=== PATIENT | male | born 1945 | race Asian ===

== ENCOUNTER 2023-08-22 18:18 | Emergency (ER) | payer OTHER ==
[~2023-08-22] VITALS: Ht 165.1 cm; Wt 72.6 kg
[2023-08-22] MEDS ORDERED: 0.9 % SODIUM CHLORIDE 1,000 ML IV SCH (18:50)
[2023-08-22 19:52] LABS: HEMATOCRIT 51.6 % (39.0-48.0); HEMOGLOBIN 17.5 g/dL (13-16.00); MEAN CELL VOLUME 85.9 fL (80.0-100.00); MEAN CORPUSCULAR HEMOGLOBIN 29.1 pg (27.00-32.0); MEAN CORPUSCULAR HGB CONC 33.9 g/dl (32.0-36.0); PLATELET COUNT 172 K/uL (150-450); RED BLOOD COUNT 6.01 M/uL (4.00-6.00); RED CELL DISTRIBUTION WIDTH 14.9 % (11.5-14.5)
[2023-08-22 20:27] LABS: CALCIUM 8.9 mg/dL (8.5-10.1); CREATININE SERUM 1.94 mg/dL (0.70-1.30); GFR 33.91; POTASSIUM 4.54 mEq/L (3.5-5.1)
[2023-08-22 21:00] LABS: ABG PH 7.426 (7.35-7.45); ABG PO2 73.9 mmHg (80-100); ABG pCO2 31.1 mmHg (35-45); BASE EXCESS -3.2 mmol/l; SaO2 94.9 %; Tco2 20.9 mmol/l
[2023-08-22 21:01] LABS: allen test SATISFACTORY; o2 28 %; puncture site RADIAL LEFT
[2023-08-22] MEDS ORDERED: ACETAMINOPHEN 500 MG GEL..CAP PO STA (23:37)
[2023-08-23] MEDS ORDERED: NIFEDIPINE 10 MG CAPSULE PO STA (00:33)
[2023-08-23] MEDS ORDERED: LEVALBUTEROL HCL 0.63 MG/3 ML SOLUTION IH SCH ×2 (00:45→05:00)
[2023-08-23 02:13] LABS: PH,URINE 5.5 (5.0-8.0); URINE APPEARANCE Clear; URINE BILIRRUBIN Negative (NEGATIVE); URINE BLOOD Moderate; URINE COLOR Yellow; URINE GLUCOSE Negative (NEGATIVE); URINE LEUKOCYTE Negative; URINE NITRATE Negative
[2023-08-23 02:17] LABS: URINE BACTERIA 37.7 uL (0.0-1933); URINE EPITHELIAL CELLS 6.3 uL (0.0-38.8); URINE WBC 12.6 uL (0.0-23.2)
[2023-08-23 02:19] LABS: URINE PROTEIN 300 (NEGATIVE)
[2023-08-23 02:56] LABS: COCAINE NEGATIVE (NEGATIVE); METHADONE NEGATIVE (NEGATIVE); OPIATES NEGATIVE (NEGATIVE); THC ( Cannabinoids) NEGATIVE (NEGATIVE)
[2023-08-23 06:42] LABS: ABG PH 7.438 (7.35-7.45); ABG PO2 78.5 mmHg (80-100); ABG pCO2 31.3 mmHg (35-45); BASE EXCESS -2.4 mmol/l; BICARBONATE 20.7 mmol/l (23-25); SaO2 95.9 %; Tco2 21.6 mmol/l; allen test SATISFACTORY; o2 21 %; puncture site RADIAL LEFT
[2023-08-23] MEDS ORDERED: ENALAPRILAT DIHYDRATE 2.5 MG/2 ML VIAL IV ONE (08:15)
[2023-08-23] MEDS ORDERED: HYZAAR 100-251 EACH PO (10:10)
[2023-08-24] MEDS ORDERED: ENOXAPARIN SODIUM 40 MG/0.4 ML SYRINGE SUBCUTANEO SCH (18:02)
[2023-08-24] MEDS ORDERED: MORPHINE SULFATE 4 MG/ML VIAL IV SCH (18:03)
[2023-08-24] MEDS ORDERED: FAMOtidine 10 MG/ML (4ML VIAL) IV SCH (18:03)
[2023-08-24] MEDS ORDERED: LOSARTAN POTASSIUM 25 MG TABLET PO SCH (18:07)
[2023-08-24] MEDS ORDERED: 0.9 % SODIUM CHLORIDE 1,000 ML IV SCH (18:15)
[2023-08-24] MEDS ORDERED: ENALAPRILAT DIHYDRATE 1.25 MG/ML VIAL IV PRN (18:15)
[2023-08-24] MEDS ORDERED: ENOXAPARIN SODIUM 40 MG/0.4 ML SYRINGE SUBCUTANEO ONE (18:15)
[2023-08-24] MEDS ORDERED: MORPHINE SULFATE 2 MG/ML CARTRIDGE IV ONE (18:15)
[2023-08-24 19:06] LABS: HEMATOCRIT 49.6 % (39.0-48.0); HEMOGLOBIN 16.8 g/dL (13-16.00); MEAN CELL VOLUME 85.7 fL (80.0-100.00); MEAN CORPUSCULAR HGB CONC 33.9 g/dl (32.0-36.0); RED BLOOD COUNT 5.79 M/uL (4.00-6.00); RED CELL DISTRIBUTION WIDTH 14.7 % (11.5-14.5)
[2023-08-24 19:12] LABS: PH,URINE 5.5 (5.0-8.0); URINE BILIRRUBIN Negative (NEGATIVE); URINE BLOOD Large; URINE COLOR Dark Yellow; URINE GLUCOSE Negative (NEGATIVE); URINE LEUKOCYTE Negative; URINE NITRATE Negative
[2023-08-24 19:14] LABS: URINE BACTERIA 45.3 uL (0.0-1933); URINE EPITHELIAL CELLS 16.6 uL (0.0-38.8); URINE RBC 921.4 uL (0.0-20.8); URINE WBC 31.6 uL (0.0-23.2)
[2023-08-24 19:23] LABS: INR 1.02; PROTHROMBIN TIME 10.7 SECONDS (9.0-11.5)
[2023-08-24 19:28] LABS: BILIRUBIN TOTAL 0.57 mg/dL (0.3-1.2); CALCIUM 8.2 mg/dL (8.5-10.1); CREATININE SERUM 1.23 mg/dL (0.70-1.30); GFR 57.36; GLOBULINA 4.9 G/DL (2.4-3.5); POTASSIUM 4.48 mEq/L (3.5-5.1); TOTAL PROTEIN 7.9 gm/dL (6.4-8.2); URINE APPEARANCE SL CLOUDY; URINE PROTEIN 300 (NEGATIVE)
[2023-08-24 19:31] LABS: URINE MUCUS SCANT
[2023-08-24 19:57] LABS: PLATELET COUNT 101 K/uL (150-450)
[2023-08-25 15:49] LABS: HEMATOCRIT 47.1 % (39.0-48.0); HEMOGLOBIN 15.8 g/dL (13-16.00); MEAN CELL VOLUME 85.7 fL (80.0-100.00); MEAN CORPUSCULAR HEMOGLOBIN 28.7 pg (27.00-32.0); MEAN CORPUSCULAR HGB CONC 33.5 g/dl (32.0-36.0); RED BLOOD COUNT 5.49 M/uL (4.00-6.00); RED CELL DISTRIBUTION WIDTH 14.7 % (11.5-14.5)
[2023-08-25 15:51] LABS: ALBUMIN 2.7 gm/dL (3.4-5.0); BILIRUBIN TOTAL 0.81 mg/dL (0.3-1.2); CALCIUM 7.8 mg/dL (8.5-10.1); CREATININE SERUM 1.28 mg/dL (0.70-1.30); GFR 54.79; GLOBULINA 4.3 G/DL (2.4-3.5); POTASSIUM 4.1 mEq/L (3.5-5.1)
[2023-08-25 16:23] LABS: PLATELET COUNT 104 K/uL (150-450)
[2023-08-26] MEDS ORDERED: DIPHENHYDRAMINE HCL 50 MG/ML VIAL 1ML IV STA (01:25)
[2023-08-26] MEDS ORDERED: 0.9 % SODIUM CHLORIDE 1,000 ML IV SCH (06:30)
[2023-08-26] MEDS ORDERED: MEPERIDINE HCL/PF 25 MG/ML VIAL IV SCH (16:13)
[2023-08-27] MEDS ORDERED: ACETAMINOPHEN 500 MG GEL..CAP PO ONE (00:45)
== END 2023-08-27 11:45 | disposition still patient (30) ==
LOC: ER 18:18
PROVIDERS: Emergency Medicine; General Practice
DX: K52.9 Noninfective gastroenteritis and colitis, unspecified (principal); I10 Essential (primary) hypertension; Z20.822 Contact with and (suspected) exposure to COVID-19

== ENCOUNTER 2023-08-26 08:00 | Inpatient (IN) | payer OTHER ==
[~2023-08-26] VITALS: Ht 165.1 cm; Wt 68.0 kg
[~2023-08-26 08:00] MED LIST: HYZAAR 100-251 EACH PO
[2023-08-27] MEDS ORDERED: MORPHINE SULFATE 2 MG/ML CARTRIDGE IV PRN (16:15)
[2023-08-27] MEDS ORDERED: 0.9 % SODIUM CHLORIDE 1,000 ML IV SCH (16:15)
[2023-08-27] MEDS ORDERED: ONDANSETRON HCL 4 MG in 0.9 % SODIUM CHLORIDE 50 ML IV PRN (16:15)
[2023-08-27] MEDS ORDERED: ENALAPRILAT DIHYDRATE 1.25 MG/ML VIAL IV PRN (16:15)
[2023-08-27] MEDS ORDERED: FAMOTIDINE/PF 20 MG in 0.9 % SODIUM CHLORIDE 100 ML IV SCH (17:00)
[2023-08-27 17:07] LABS: HEMATOCRIT 42.2 % (39.0-48.0); HEMOGLOBIN 14.3 g/dL (13-16.00); MEAN CELL VOLUME 84.7 fL (80.0-100.00); MEAN CORPUSCULAR HEMOGLOBIN 28.7 pg (27.00-32.0); MEAN CORPUSCULAR HGB CONC 33.9 g/dl (32.0-36.0); PLATELET COUNT 163 K/uL (150-450); RED BLOOD COUNT 4.98 M/uL (4.00-6.00); RED CELL DISTRIBUTION WIDTH 14.7 % (11.5-14.5)
[2023-08-27 17:25] LABS: INR 0.98; PROTHROMBIN TIME 10.3 SECONDS (9.0-11.5)
[2023-08-27] MEDS ORDERED: ENALAPRILAT DIHYDRATE 1.25 MG/ML VIAL IV SCH (18:00)
[2023-08-28] MEDS ORDERED: LOSARTAN POTASSIUM 100 MG TABLET PO SCH (06:00)
[2023-08-28] MEDS ORDERED: AMLODIPINE BESYLATE 5 MG TABLET PO SCH (06:00)
[2023-08-28] MEDS ORDERED: CARVEDILOL 25 MG TABLET PO SCH (17:01)
[2023-08-28] MEDS ORDERED: NIFEDIPINE 60 MG TAB.SA.OSM PO SCH (17:02)
[2023-08-29] MEDS ORDERED: NIFEDIPINE 60 MG TAB.SA.OSM PO SCH (09:00)
[2023-08-29] MEDS ORDERED: HYDROCHLOROTHIAZIDE 12.5 MG CAPSULE PO SCH (17:00)
[2023-08-30 05:46] LABS: PH,URINE 6.5 (5.0-8.0); URINE APPEARANCE Clear; URINE BILIRRUBIN Negative (NEGATIVE); URINE BLOOD Large; URINE COLOR Yellow; URINE GLUCOSE Negative (NEGATIVE); URINE LEUKOCYTE Small; URINE NITRATE Negative
[2023-08-30 05:48] LABS: URINE BACTERIA 3293.3 uL (0.0-1933); URINE EPITHELIAL CELLS 14.3 uL (0.0-38.8); URINE RBC 1752.2 uL (0.0-20.8); URINE WBC 107.4 uL (0.0-23.2)
[2023-08-30 05:56] LABS: URINE PROTEIN 100 (NEGATIVE)
[2023-08-30 06:32] LABS: ALBUMIN 2.9 gm/dL (3.4-5.0); BILIRUBIN TOTAL 0.58 mg/dL (0.3-1.2); CALCIUM 8.2 mg/dL (8.5-10.1); CREATININE SERUM 1.19 mg/dL (0.70-1.30); GFR 59.59; GLOBULINA 4.6 G/DL (2.4-3.5); POTASSIUM 4.61 mEq/L (3.5-5.1); TOTAL PROTEIN 7.5 gm/dL (6.4-8.2)
[2023-08-30] MEDS ORDERED: 0.9 % SODIUM CHLORIDE 1,000 ML IV SCH (09:00)
[2023-08-30] MEDS ORDERED: IRBESARTAN 300 MG TABLET PO SCH (09:00)
[2023-08-30] MEDS ORDERED: PROMETHAZINE HCL 50 MG/ML AMPUL IM PRN (09:00)
[2023-08-30] MEDS ORDERED: NIFEDIPINE 90 MG TAB.SA.OSM PO SCH (09:00)
[2023-08-30] MEDS ORDERED: MEPERIDINE HCL/PF 50 MG/ML VIAL IM PRN (09:00)
[2023-08-30] MEDS ORDERED: CEFAZOLIN SODIUM 1,000 MG VIAL IV NR (09:00)
[2023-08-30 13:49] LABS: MAGNESIUM 2.1 mg/dL (1.8-2.4)
[2023-08-30] MEDS ORDERED: VANCOMYCIN HCL 1,000 MG VIAL IR ONE (21:00)
[2023-08-30] MEDS ORDERED: CEFAZOLIN SODIUM 1,000 MG VIAL IV ONE (21:00)
[2023-08-30] MEDS ORDERED: POVIDONE-IODINE 0.75 OZ PACKET TOP ONE (21:00)
[2023-08-30] MEDS ORDERED: TRANEXAMIC ACID 100MG/1ML (1000MG) AMPUL IV ONE ×2 (21:00)
[2023-08-30] MEDS ORDERED: ONDANSETRON HCL 2 MG/ML VIAL IV PRN (21:15)
[2023-08-30] MEDS ORDERED: OxyCODONE HCL 5 MG TABLET (ROXICODONE) PO PRN (21:15)
[2023-08-30] MEDS ORDERED: SODIUM CHLORIDE 0.45 % 1,000 ML IV SCH (21:15)
[2023-08-30] MEDS ORDERED: MORPHINE SULFATE 4 MG/ML CARTRIDGE IV PRN (21:15)
[2023-08-31] MEDS ORDERED: ACETAMINOPHEN 500 MG GEL..CAP PO SCH
[2023-08-31] MEDS ORDERED: GABAPENTIN 300 MG CAPSULE PO SCH (01:00)
[2023-08-31] MEDS ORDERED: CEFAZOLIN SODIUM 1,000 MG VIAL IV SCH (01:00)
[2023-08-31 06:48] LABS: HEMATOCRIT 39.8 % (39.0-48.0); HEMOGLOBIN 13.5 g/dL (13-16.00); MEAN CELL VOLUME 84.9 fL (80.0-100.00); MEAN CORPUSCULAR HEMOGLOBIN 28.8 pg (27.00-32.0); MEAN CORPUSCULAR HGB CONC 33.8 g/dl (32.0-36.0); PLATELET COUNT 293 K/uL (150-450); RED BLOOD COUNT 4.68 M/uL (4.00-6.00); RED CELL DISTRIBUTION WIDTH 14.1 % (11.5-14.5)
[2023-08-31] MEDS ORDERED: APIXABAN 2.5 MG TABLET PO SCH (09:00)
[2023-08-31] MEDS ORDERED: FAMOTIDINE/PF 20 MG in 0.9 % SODIUM CHLORIDE 100 ML IV SCH (09:00)
[2023-08-31] MEDS ORDERED: SENNOSIDES 1 TAB TABLET PO SCH (09:00)
[2023-08-31] MEDS ORDERED: HALOPERIDOL LACTATE 5 MG/ML AMPUL IM PRN (13:00)
[2023-09-01 07:57] LABS: HEMATOCRIT 34.6 % (39.0-48.0); HEMOGLOBIN 11.7 g/dL (13-16.00); MEAN CELL VOLUME 84.3 fL (80.0-100.00); MEAN CORPUSCULAR HEMOGLOBIN 28.5 pg (27.00-32.0); MEAN CORPUSCULAR HGB CONC 33.8 g/dl (32.0-36.0); PLATELET COUNT 392 K/uL (150-450); RED CELL DISTRIBUTION WIDTH 14.1 % (11.5-14.5)
[2023-09-01] MEDS ORDERED: PERCOCET 5-3251 EACH PO ×2 (08:27)
[2023-09-01] MEDS ORDERED: ELIQUIS2.5 MG PO ×2 (08:27)
[2023-09-01] MEDS ORDERED: DUI500 PO ×2 (08:27)
[2023-09-01] MEDS ORDERED: IRON FUM,PS/FOLIC ACID/VITC/B3 1 CAP CAPSULE PO SCH (09:00)
[2023-09-01] MEDS ORDERED: MINERAL OIL 30 ML BLIST.PACK PO NR (11:00)
[2023-09-01] MEDS ORDERED: MAG HYDROX/ALUMINUM HYD/SIMETH 30 ML BLIST.PACK PO NR (11:00)
[2023-09-01] MEDS ORDERED: LACTULOSE 20 G/30 ML BLIST.PACK PO NR (11:00)
[2023-09-01] MEDS ORDERED: NOREPINEPHRINE BITARTRATE 4 MG in DEXTROSE 5 % IN WATER 250 ML IV SCH (14:30)
[2023-09-01 17:23] LABS: ABG PH 7.415 (7.35-7.45); ABG PO2 79.9 mmHg (80-100); ABG pCO2 34.2 mmHg (35-45); BASE EXCESS -2.3 mmol/l; BICARBONATE 21.5 mmol/l (23-25); SaO2 95.8 %; Tco2 22.5 mmol/l; allen test SATISFACTORY; o2 21 %; puncture site RADIAL LEFT
[2023-09-01 18:05] LABS: HEMATOCRIT 37.7 % (39.0-48.0); HEMOGLOBIN 12.8 g/dL (13-16.00); MEAN CELL VOLUME 85.3 fL (80.0-100.00); MEAN CORPUSCULAR HEMOGLOBIN 28.9 pg (27.00-32.0); MEAN CORPUSCULAR HGB CONC 33.8 g/dl (32.0-36.0); PLATELET COUNT 453 K/uL (150-450); RED BLOOD COUNT 4.42 M/uL (4.00-6.00); RED CELL DISTRIBUTION WIDTH 13.9 % (11.5-14.5)
[2023-09-01] MEDS ORDERED: ENOXAPARIN SODIUM 40 MG/0.4 ML SYRINGE SUBCUTANEO SCH (21:00)
[2023-09-02] MEDS ORDERED: THIAMINE HCL 100 MG TABLET PO SCH (09:00)
[2023-09-03] MEDS ORDERED: XARELTO10 MG PO ×2 (08:30)
== END 2023-09-03 13:36 | disposition home or self-care (01) | DRG 522 ==
LOC: ER 08:00 → SURG 08-27 16:15
PROVIDERS: General Practice; Internal Medicine Cardiovascular Disease; Orthopaedic Surgery; ADMIT Internal Medicine; ATTEND Internal Medicine
PROC: B246ZZZ Ultrasonography of Right and Left Heart (ICD-10-PCS; 2023-08-27)
PROC: 0MBL0ZZ Excision of Right Hip Bursa and Ligament, Open Approach (ICD-10-PCS; 2023-08-30)
PROC: 0QU60KZ Supplement Right Upper Femur with Nonautologous Tissue Substitute, Open Approach (ICD-10-PCS; 2023-08-30)
PROC: 0SRR0JA Replacement of Right Hip Joint, Femoral Surface with Synthetic Substitute, Uncemented, Open Approach (ICD-10-PCS; principal; 2023-08-30 15:15)
PROC: B020ZZZ Computerized Tomography (CT Scan) of Brain (ICD-10-PCS; 2023-08-31)
PROC: B030ZZZ Magnetic Resonance Imaging (MRI) of Brain (ICD-10-PCS; 2023-09-01)
PROC: B030YZZ Magnetic Resonance Imaging (MRI) of Brain using Other Contrast (ICD-10-PCS; 2023-09-01)
PROC: B345ZZZ Ultrasonography of Bilateral Common Carotid Arteries (ICD-10-PCS; 2023-09-01)
PROC: B348ZZZ Ultrasonography of Bilateral Internal Carotid Arteries (ICD-10-PCS; 2023-09-01)
DX: S72.091A Other fracture of head and neck of right femur, initial encounter for closed fracture (principal); M16.11 Unilateral primary osteoarthritis, right hip; M70.61 Trochanteric bursitis, right hip; I10 Essential (primary) hypertension; E88.89 Other specified metabolic disorders; F80.2 Mixed receptive-expressive language disorder; R41.82 Altered mental status, unspecified; W18.30XA Fall on same level, unspecified, initial encounter; Y93.9 Activity, unspecified; Y92.9 Unspecified place or not applicable; Y99.9 Unspecified external cause status
CPT/HCPCS: 70552

== ENCOUNTER 2023-10-04 15:08 | Inpatient (IN) | payer OTHER ==
[~2023-10-04] VITALS: Ht 172.7 cm; Wt 63.5 kg
[~2023-10-04 15:08] MED LIST changes: +DUI500 PO; +ELIQUIS2.5 MG PO; +PERCOCET 5-3251 EACH PO; +XARELTO10 MG PO
[2023-10-04 17:01] LABS: HEMOGLOBIN 12.8 g/dL (13-16.00); MEAN CELL VOLUME 83.9 fL (80.0-100.00); MEAN CORPUSCULAR HEMOGLOBIN 28.3 pg (27.00-32.0); MEAN CORPUSCULAR HGB CONC 33.7 g/dl (32.0-36.0); PLATELET COUNT 356 K/uL (150-450); RED BLOOD COUNT 4.53 M/uL (4.00-6.00); RED CELL DISTRIBUTION WIDTH 14.1 % (11.5-14.5)
[2023-10-04 17:05] LABS: ERYTHROCYTE SEDIMENTATION RATE > 130 mm/hr
[2023-10-04 17:54] LABS: ALBUMIN 2.8 gm/dL (3.4-5.0); BILIRUBIN TOTAL 0.53 mg/dL (0.3-1.2); CALCIUM 9.4 mg/dL (8.5-10.1); CREATININE SERUM 1.04 mg/dL (0.70-1.30); GFR 69.62; GLOBULINA 5.3 G/DL (2.4-3.5); POTASSIUM 4.65 mEq/L (3.5-5.1); TOTAL PROTEIN 8.1 gm/dL (6.4-8.2)
[2023-10-04 18:16] LABS: C-REACTIVE PROTEIN 6.31 MG/DL (0.00-0.29)
[2023-10-04] MEDS ORDERED: MEROPENEM 500 MG/VIAL VIAL IV SCH (21:25)
[2023-10-04] MEDS ORDERED: 0.9 % SODIUM CHLORIDE 1,000 ML IV SCH (21:30)
[2023-10-04] MEDS ORDERED: ACETAMINOPHEN 500 MG GEL..CAP PO PRN (21:30)
[2023-10-04] MEDS ORDERED: AMLODIPINE BESYLATE 5 MG TABLET PO ONE (21:30)
[2023-10-04] MEDS ORDERED: TRAMADOL HCL 50 MG TABLET PO PRN (21:30)
[2023-10-05 00:29] LABS: INR 1.07; PARTIAL THROMBOPLASTIN TIME 32.5 SECONDS (22.0-34.0); PROTHROMBIN TIME 11.6 SECONDS (9.0-11.5)
[2023-10-05 06:01] LABS: URINE APPEARANCE Clear; URINE BILIRRUBIN Negative (NEGATIVE); URINE BLOOD Negative; URINE COLOR Dark Yellow; URINE GLUCOSE Negative (NEGATIVE); URINE KETONE Negative (NEGATIVE); URINE LEUKOCYTE Trace; URINE NITRATE Negative; URINE PROTEIN Trace (NEGATIVE); URINE UROBILINOGEN 0.2 E.U./dl
[2023-10-05 06:05] LABS: URINE EPITHELIAL CELLS 2.1 uL (0.0-38.8); URINE RBC 2.4 uL (0.0-20.8); URINE WBC 2.1 uL (0.0-23.2)
[2023-10-05 06:15] LABS: URINE BACTERIA 2.5 uL (0.0-1933)
[2023-10-05] MEDS ORDERED: ENOXAPARIN SODIUM 40 MG/0.4 ML SYRINGE SUBCUTANEO SCH (09:00)
[2023-10-05] MEDS ORDERED: FAMOTIDINE/PF 20 MG in 0.9 % SODIUM CHLORIDE 8 ML IV PUSH SCH (09:00)
[2023-10-05] MEDS ORDERED: LOSARTAN/HYDROCHLOROTHIAZIDE 1 UDTAB TABLET PO SCH (09:00)
[2023-10-05] MEDS ORDERED: FAMOTIDINE/PF 20 MG/2 ML VIAL ONE (09:08)
[2023-10-05] MEDS ORDERED: CEFTRIAXONE SODIUM 2,000 MG in 0.9 % SODIUM CHLORIDE 100 ML IV SCH (22:58)
[2023-10-06] MEDS ORDERED: MEROPENEM 500 MG/VIAL VIAL IV SCH
[2023-10-06 07:59] LABS: HEMOGLOBIN 13.1 g/dL (13-16.00); MEAN CELL VOLUME 85.9 fL (80.0-100.00); MEAN CORPUSCULAR HEMOGLOBIN 28.8 pg (27.00-32.0); MEAN CORPUSCULAR HGB CONC 33.6 g/dl (32.0-36.0); PLATELET COUNT 369 K/uL (150-450); RED BLOOD COUNT 4.53 M/uL (4.00-6.00); RED CELL DISTRIBUTION WIDTH 13.8 % (11.5-14.5)
[2023-10-06] MEDS ORDERED: FAMOTIDINE/PF 20 MG/2 ML VIAL ONE (08:33)
[2023-10-06 08:40] LABS: ALBUMIN 2.7 gm/dL (3.4-5.0); BILIRUBIN TOTAL 0.41 mg/dL (0.3-1.2); CALCIUM 8.7 mg/dL (8.5-10.1); CREATININE SERUM 1.28 mg/dL (0.70-1.30); GFR 54.79; POTASSIUM 4.19 mEq/L (3.5-5.1); TOTAL PROTEIN 7.7 gm/dL (6.4-8.2)
[2023-10-07] MEDS ORDERED: FAMOTIDINE/PF 20 MG/2 ML VIAL ONE (07:58)
[2023-10-07] MEDS ORDERED: TAMSULOSIN HCL 0.4 MG CAP PO SCH (12:00)
[2023-10-08] MEDS ORDERED: FAMOTIDINE/PF 20 MG/2 ML VIAL ONE (08:25)
[2023-10-08 14:22] LABS: HEMATOCRIT 34.6 % (39.0-48.0); HEMOGLOBIN 11.5 g/dL (13-16.00); MEAN CELL VOLUME 85.3 fL (80.0-100.00); MEAN CORPUSCULAR HEMOGLOBIN 28.3 pg (27.00-32.0); MEAN CORPUSCULAR HGB CONC 33.2 g/dl (32.0-36.0); PLATELET COUNT 342 K/uL (150-450); RED BLOOD COUNT 4.05 M/uL (4.00-6.00); RED CELL DISTRIBUTION WIDTH 13.7 % (11.5-14.5)
[2023-10-08 15:07] LABS: ALBUMIN 2.4 gm/dL (3.4-5.0); BILIRUBIN TOTAL 0.41 mg/dL (0.3-1.2); CALCIUM 8.4 mg/dL (8.5-10.1); CREATININE SERUM 0.86 mg/dL (0.70-1.30); GFR 86.69; GLOBULINA 4.3 G/DL (2.4-3.5); POTASSIUM 3.96 mEq/L (3.5-5.1); TOTAL PROTEIN 6.7 gm/dL (6.4-8.2)
[2023-10-09] MEDS ORDERED: FAMOTIDINE/PF 20 MG/2 ML VIAL ONE (08:50)
[2023-10-09] MEDS ORDERED: FAMOtidine 20 MG TABLET PO SCH (21:00)
== END 2023-10-11 13:12 | disposition home or self-care (01) | DRG 863 ==
LOC: ER 15:08 → MEDJ 21:57
PROVIDERS: General Practice; ADMIT Internal Medicine; ATTEND Internal Medicine
PROC: BQ20ZZZ Computerized Tomography (CT Scan) of Right Hip (ICD-10-PCS; principal; 2023-10-04)
PROC: BT43ZZZ Ultrasonography of Bilateral Kidneys (ICD-10-PCS; 2023-10-06)
PROC: 0T9B70Z Drainage of Bladder with Drainage Device, Via Natural or Artificial Opening (ICD-10-PCS; 2023-10-06)
PROC: 02HV33Z Insertion of Infusion Device into Superior Vena Cava, Percutaneous Approach (ICD-10-PCS; 2023-10-08)
DX: T81.41XA Infection following a procedure, superficial incisional surgical site, initial encounter (principal); L03.115 Cellulitis of right lower limb; N13.8 Other obstructive and reflux uropathy; N40.0 Benign prostatic hyperplasia without lower urinary tract symptoms; K59.00 Constipation, unspecified; R97.20 Elevated prostate specific antigen [PSA]; B95.2 Enterococcus as the cause of diseases classified elsewhere; B96.20 Unspecified Escherichia coli [E. coli] as the cause of diseases classified elsewhere; B96.89 Other specified bacterial agents as the cause of diseases classified elsewhere; Z74.01 Bed confinement status